=== PATIENT | male | born 1995 | race African-American/Black ===

== ENCOUNTER 2020-06-26 20:25 | Emergency (ER) | payer SELFPAY ==
[2020-06-27 01:55] LABS: SARS-CoV-2 PCR by NAA Not Detected (NotDetected)
== END 2020-06-26 21:22 | disposition home or self-care (01) ==
LOC: ERS 20:25
DX: Z20.822 Contact with and (suspected) exposure to COVID-19 (principal); R03.0 Elevated blood-pressure reading, without diagnosis of hypertension; Z79.891 Long term (current) use of opiate analgesic
CPT/HCPCS: 87635; 99283; U0003; U0005

== ENCOUNTER 2021-05-29 20:00 | Emergency (ER) | payer SELFPAY ==
[2021-05-29] MEDS ORDERED: Metoclopramide HCl 10 MG/2 ML VIAL ONE (21:50)
[2021-05-29] MEDS ORDERED: Ketorolac Tromethamine 30 MG/ML VIAL ONE (21:50)
[2021-05-29] MEDS ORDERED: Acetaminophen 500 MG TAB ONE (21:50)
[2021-05-29] MEDS ORDERED: diphenhydrAMINE 50 MG/ML VIAL ONE ×2 (21:50→21:54)
== END 2021-05-29 23:43 | disposition home or self-care (01) ==
LOC: ERS 20:00
DX: R51.9 Headache, unspecified (principal); J45.909 Unspecified asthma, uncomplicated
CPT/HCPCS: 96374; 96375; J1200; J1885; J2765

== ENCOUNTER 2021-06-05 16:52 | Emergency (ER) | payer SELFPAY ==
[2021-06-05] MEDS ORDERED: Ondansetron ODT 4 MG TAB ONE (17:15)
== END 2021-06-05 17:30 | disposition home or self-care (01) ==
LOC: ERS 16:52
DX: B34.9 Viral infection, unspecified (principal); R11.2 Nausea with vomiting, unspecified; J45.909 Unspecified asthma, uncomplicated
CPT/HCPCS: 99283; Q0162

== ENCOUNTER 2023-05-17 13:15 | Inpatient (IN) | payer SELFPAY ==
[2023-05-17 13:54] LABS: #Monocytes 0.8 thou/uL (0.11-0.59); #Neutrophils 7.6 thou/uL (1.40-6.50); %Basophils 0.1 % (0.0-1.0); %Lymphocytes 12.3 % (21.0-51.0); %Monocytes 8.6 % (0.0-10.0); %Neutrophils 78.7 % (42.0-75.0); Hematocrit 45.9 % (42.0-52.0); Mean Corpuscular Hemoglobin 33.1 pg (27.0-31.0); Mean Corpuscular Volume 89.3 fl (78.0-98.0); Mean Platelet Volume 9.9 fL (7.4-10.4); Platelet Count 312 10x3/uL (130-400); RBC Distribution Width 11.1 % (11.5-14.5); Red Blood Cell (RBC) Count 5.14 mill/uL (4.70-6.10); White Blood Cell (WBC) Count 9.6 10x3/uL (4.8-10.8)
[2023-05-17 14:12] LABS: Acetaminophen 55 mcg/mL (10.0-30.0); Alcohol Less than 10.0 mg/dL (Less than 10); Lipase 33 U/L (8-78); Salicylate Less than 8.0 mg/dL (15.0-30.0)
[2023-05-17 14:15] LABS: ALT (SGPT) 196 U/L (8-55); AST (SGOT) 212 U/L (5-34); Albumin 4.8 g/dL (3.5-5.0); Alkaline Phosphatase 63 U/L (40-110); Anion Gap 21 mmol/L (10-20); BUN (Urea Nitrogen) 12 mg/dL (8.9-20.6); Bilirubin, Total 2.4 mg/dL (0.2-1.2); Calc. Creatinine Clearance 0 mL/min (70-130); Calcium 9.7 mg/dL (7.8-10.44); Carbon Dioxide 16 mmol/L (22-29); Chloride 106 mmol/L (98-107); Estimated GFR 123; Globulin 2.2 g/dL (2.4-3.5); Glucose 86 mg/dL (70-105); Potassium 3.7 mmol/L (3.5-5.1); Sodium 139 mmol/L (136-145)
[2023-05-17] MEDS ORDERED: WATER IVPB SCH ×4 (15:00→20:30)
[2023-05-17] MEDS ORDERED: DEXTROSE 5% IVPB SCH ×4 (15:00→20:30)
[2023-05-17] MEDS ORDERED: ACETYLCYSTEINE IVPB SCH ×4 (15:00→20:30)
[2023-05-17] MEDS ORDERED: Morphine 4 MG/ML VIAL ONE (15:20)
[2023-05-17] MEDS ORDERED: DEXTROSE 5% IV SCH ×3 (16:00→21:00)
[2023-05-17] MEDS ORDERED: WATER IV SCH ×3 (16:00→21:00)
[2023-05-17] MEDS ORDERED: ACETYLCYSTEINE IV SCH ×3 (16:00→21:00)
[2023-05-17 17:03] LABS: Lactic Acid 1.9 mmol/L (0.5-2.2)
[2023-05-17 17:12] VITALS: BMI 21.1
[2023-05-17 18:54] LABS: Acetaminophen 34 mcg/mL (10.0-30.0)
[2023-05-17 18:58] LABS: INR-International Normal Ratio 1.6; PTT 27.2 sec (22.9-36.1); Prothrombin Time 18.9 sec (12.0-14.7)
[2023-05-17 21:51] LABS: INR-International Normal Ratio 1.5; PTT 28.2 sec (22.9-36.1); Prothrombin Time 17.9 sec (12.0-14.7)
[2023-05-17 22:00] LABS: ALT (SGPT) 1172 U/L (8-55); AST (SGOT) 969 U/L (5-34); Albumin 5.4 g/dL (3.5-5.0); Alkaline Phosphatase 69 U/L (40-110); Bilirubin, Direct 1.1 mg/dL (0.1-0.3); Bilirubin, Total 5.7 mg/dL (0.2-1.2); Protein, Total 8.4 g/dL (6.0-8.3)
[2023-05-18 07:46] LABS: #Monocytes 1.5 thou/uL (0.11-0.59); #Neutrophils 10.7 thou/uL (1.40-6.50); %Basophils 0.3 % (0.0-1.0); %Eosinophils 0.1 % (0.0-10.0); %Lymphocytes 11.9 % (21.0-51.0); %Monocytes 10.4 % (0.0-10.0); %Neutrophils 76.9 % (42.0-75.0); Hematocrit 44.6 % (42.0-52.0); Hemoglobin 16.2 g/dL (14.0-18.0); Mean Corpuscular HGB CONC 36.3 g/dL (32.0-36.0); Mean Corpuscular Hemoglobin 32.7 pg (27.0-31.0); Mean Corpuscular Volume 90.1 fl (78.0-98.0); Mean Platelet Volume 10.7 fL (7.4-10.4); Platelet Count 277 10x3/uL (130-400); RBC Distribution Width 11.2 % (11.5-14.5); Red Blood Cell (RBC) Count 4.95 mill/uL (4.70-6.10); White Blood Cell (WBC) Count 13.9 10x3/uL (4.8-10.8)
[2023-05-18] MEDS ORDERED: ACETYLCYSTEINE IVPB SCH (08:00)
[2023-05-18] MEDS ORDERED: WATER IVPB SCH (08:00)
[2023-05-18] MEDS ORDERED: DEXTROSE 5% IVPB SCH (08:00)
[2023-05-18 08:01] LABS: Acetaminophen Less than 10 mcg/mL (10.0-30.0); Anion Gap 14 mmol/L (10-20); BUN (Urea Nitrogen) 9 mg/dL (8.9-20.6); Calc. Creatinine Clearance 133 mL/min (70-130); Calcium 9.1 mg/dL (7.8-10.44); Carbon Dioxide 23 mmol/L (22-29); Chloride 100 mmol/L (98-107); Estimated GFR 126; Glucose 85 mg/dL (70-105); Potassium 3.2 mmol/L (3.5-5.1); Sodium 134 mmol/L (136-145)
[2023-05-18] MEDS: Enoxaparin 40 MG (0.4 mL) SYRINGE SC SCH (09:11)
[2023-05-18 12:46] LABS: INR-International Normal Ratio 1.8; Prothrombin Time 20.8 sec (12.0-14.7)
[2023-05-18 12:54] LABS: ALT (SGPT) 1010 U/L (8-55); AST (SGOT) 592 U/L (5-34); Acetaminophen Less than 10 mcg/mL (10.0-30.0); Albumin 4.1 g/dL (3.5-5.0); Alkaline Phosphatase 65 U/L (40-110); Bilirubin, Direct 1.5 mg/dL (0.1-0.3); Bilirubin, Total 5.5 mg/dL (0.2-1.2); Protein, Total 6.2 g/dL (6.0-8.3)
[2023-05-18] MEDS: WATER IV SCH (14:38)
[2023-05-18] MEDS: ACETYLCYSTEINE IV SCH (14:38)
[2023-05-18] MEDS: DEXTROSE 5% IV SCH (14:38)
[2023-05-18 21:24] LABS: INR-International Normal Ratio 1.7; PTT 32.7 sec (22.9-36.1); Prothrombin Time 19.7 sec (12.0-14.7)
[2023-05-18 21:26] LABS: ALT (SGPT) 1157 U/L (8-55); AST (SGOT) 631 U/L (5-34); Albumin 4.2 g/dL (3.5-5.0); Alkaline Phosphatase 67 U/L (40-110); Bilirubin, Direct 1.3 mg/dL (0.1-0.3); Bilirubin, Total 5.3 mg/dL (0.2-1.2); Protein, Total 6.3 g/dL (6.0-8.3)
[2023-05-19] MEDS: ACETYLCYSTEINE IV SCH (06:59)
[2023-05-19] MEDS: DEXTROSE 5% IV SCH (06:59)
[2023-05-19] MEDS: WATER IV SCH (06:59)
[2023-05-19 07:05] LABS: #Eosinphils 0.1 thou/uL (0.0-0.7); #Monocytes 1.1 thou/uL (0.11-0.59); #Neutrophils 6.2 thou/uL (1.40-6.50); %Basophils 0.2 % (0.0-1.0); %Eosinophils 0.6 % (0.0-10.0); %Monocytes 12.5 % (0.0-10.0); %Neutrophils 70.4 % (42.0-75.0); Hematocrit 42.8 % (42.0-52.0); Hemoglobin 15.7 g/dL (14.0-18.0); Mean Corpuscular HGB CONC 36.7 g/dL (32.0-36.0); Mean Corpuscular Hemoglobin 32.8 pg (27.0-31.0); Mean Corpuscular Volume 89.4 fl (78.0-98.0); Mean Platelet Volume 10.8 fL (7.4-10.4); Platelet Count 236 10x3/uL (130-400); RBC Distribution Width 11.1 % (11.5-14.5); Red Blood Cell (RBC) Count 4.79 mill/uL (4.70-6.10); White Blood Cell (WBC) Count 8.8 10x3/uL (4.8-10.8)
[2023-05-19 07:34] LABS: ALT (SGPT) 1261 U/L (8-55); AST (SGOT) 631 U/L (5-34); Acetaminophen Less than 10 mcg/mL (10.0-30.0); Albumin 4.1 g/dL (3.5-5.0); Alkaline Phosphatase 65 U/L (40-110); Anion Gap 13 mmol/L (10-20); BUN (Urea Nitrogen) 7 mg/dL (8.9-20.6); Bilirubin, Total 3.8 mg/dL (0.2-1.2); Calc. Creatinine Clearance 128 mL/min (70-130); Calcium 8.6 mg/dL (7.8-10.44); Carbon Dioxide 27 mmol/L (22-29); Chloride 101 mmol/L (98-107); Estimated GFR 125; Glucose 77 mg/dL (70-105); Magnesium 2.9 mg/dL (1.6-2.6); Potassium 3.5 mmol/L (3.5-5.1); Protein, Total 6.1 g/dL (6.0-8.3); Sodium 137 mmol/L (136-145)
[2023-05-19 09:16] LABS: ALT (SGPT) 1265 U/L (8-55); AST (SGOT) 623 U/L (5-34); Albumin 4.1 g/dL (3.5-5.0); Alkaline Phosphatase 64 U/L (40-110); Bilirubin, Direct 1.2 mg/dL (0.1-0.3); Bilirubin, Total 3.9 mg/dL (0.2-1.2); Protein, Total 6.1 g/dL (6.0-8.3)
[2023-05-19] MEDS: Enoxaparin 40 MG (0.4 mL) SYRINGE SC SCH (10:33)
[2023-05-19 11:46] LABS: INR-International Normal Ratio 1.4; PTT 33.9 sec (22.9-36.1); Prothrombin Time 16.9 sec (12.0-14.7)
[2023-05-19 21:36] LABS: Acetaminophen Less than 10 mcg/mL (10.0-30.0)
[2023-05-19 21:38] LABS: ALT (SGPT) 1651 U/L (8-55); AST (SGOT) 947 U/L (5-34); Alkaline Phosphatase 60 U/L (40-110); Bilirubin, Direct 1.6 mg/dL (0.1-0.3); Bilirubin, Total 3.8 mg/dL (0.2-1.2); Protein, Total 5.9 g/dL (6.0-8.3)
[2023-05-19 21:53] LABS: INR-International Normal Ratio 1.2; Prothrombin Time 15.4 sec (12.0-14.7)
[2023-05-19 21:54] LABS: PTT 31.3 sec (22.9-36.1)
[2023-05-20] MEDS: WATER IV SCH ×2 (00:18→16:50)
[2023-05-20] MEDS: DEXTROSE 5% IV SCH ×2 (00:18→16:50)
[2023-05-20] MEDS: ACETYLCYSTEINE IV SCH ×2 (00:18→16:50)
[2023-05-20 04:23] LABS: #Eosinphils 0.1 thou/uL (0.0-0.7); #Monocytes 1.3 thou/uL (0.11-0.59); #Neutrophils 4.9 thou/uL (1.40-6.50); %Basophils 0.2 % (0.0-1.0); %Lymphocytes 22.7 % (21.0-51.0); %Monocytes 15.8 % (0.0-10.0); %Neutrophils 60.2 % (42.0-75.0); Hematocrit 41.4 % (42.0-52.0); Hemoglobin 15.2 g/dL (14.0-18.0); Mean Corpuscular HGB CONC 36.7 g/dL (32.0-36.0); Mean Corpuscular Hemoglobin 32.4 pg (27.0-31.0); Mean Corpuscular Volume 88.3 fl (78.0-98.0); Mean Platelet Volume 10.7 fL (7.4-10.4); Platelet Count 224 10x3/uL (130-400); RBC Distribution Width 11.1 % (11.5-14.5); Red Blood Cell (RBC) Count 4.69 mill/uL (4.70-6.10); White Blood Cell (WBC) Count 8.2 10x3/uL (4.8-10.8)
[2023-05-20 04:52] LABS: Anion Gap 16 mmol/L (10-20); BUN (Urea Nitrogen) 8 mg/dL (8.9-20.6); Calc. Creatinine Clearance 130 mL/min (70-130); Calcium 8.8 mg/dL (7.8-10.44); Carbon Dioxide 25 mmol/L (22-29); Chloride 99 mmol/L (98-107); Estimated GFR 125; Glucose 86 mg/dL (70-105); Potassium 3.1 mmol/L (3.5-5.1); Sodium 137 mmol/L (136-145)
[2023-05-20 05:05] LABS: HBCM Index 0.12 S/CO (0-0.79); HBSAg Index 0.17 S/CO (0-0.99); Hep A IgM AB Non-Reactive S/CO (NonReactive); Hep A IgM S/CO 0.21 S/CO (0-0.79); Hep B Surf Ag Non-Reactive S/CO (NonReactive); Hep C IgG Ab Non-Reactive S/CO (NonReactive); Hep C Index 0.13 S/CO (0-0.79); Hepatitis B Core IgM Abs Non-Reactive S/CO (NonReactive)
[2023-05-20] MEDS: Enoxaparin 40 MG (0.4 mL) SYRINGE SC SCH (07:55)
[2023-05-20 10:29] LABS: INR-International Normal Ratio 1.2; Prothrombin Time 15.4 sec (12.0-14.7)
[2023-05-20 10:30] LABS: PTT 32.9 sec (22.9-36.1)
[2023-05-20 10:37] LABS: ALT (SGPT) 1786 U/L (8-55); AST (SGOT) 782 U/L (5-34); Acetaminophen Less than 10 mcg/mL (10.0-30.0); Albumin 4.1 g/dL (3.5-5.0); Alkaline Phosphatase 68 U/L (40-110); Bilirubin, Total 4.5 mg/dL (0.2-1.2); Protein, Total 6.3 g/dL (6.0-8.3)
[2023-05-20 20:58] LABS: INR-International Normal Ratio 1.2; Prothrombin Time 15.5 sec (12.0-14.7)
[2023-05-20 20:59] LABS: PTT 29.4 sec (22.9-36.1)
[2023-05-20 21:20] LABS: ALT (SGPT) 1536 U/L (8-55); AST (SGOT) 550 U/L (5-34); Albumin 4.1 g/dL (3.5-5.0); Alkaline Phosphatase 64 U/L (40-110); Bilirubin, Direct 2.2 mg/dL (0.1-0.3); Bilirubin, Total 4.3 mg/dL (0.2-1.2); Protein, Total 6.2 g/dL (6.0-8.3)
[2023-05-21 04:36] LABS: #Eosinphils 0.1 thou/uL (0.0-0.7); #Monocytes 0.9 thou/uL (0.11-0.59); #Neutrophils 3.8 thou/uL (1.40-6.50); %Basophils 0.3 % (0.0-1.0); %Eosinophils 1.7 % (0.0-10.0); %Lymphocytes 25.3 % (21.0-51.0); %Monocytes 14.4 % (0.0-10.0); Hematocrit 40.2 % (42.0-52.0); Hemoglobin 14.7 g/dL (14.0-18.0); Mean Corpuscular HGB CONC 36.6 g/dL (32.0-36.0); Mean Corpuscular Hemoglobin 32.3 pg (27.0-31.0); Mean Corpuscular Volume 88.4 fl (78.0-98.0); Mean Platelet Volume 10.7 fL (7.4-10.4); Platelet Count 212 10x3/uL (130-400); RBC Distribution Width 10.8 % (11.5-14.5); Red Blood Cell (RBC) Count 4.55 mill/uL (4.70-6.10); White Blood Cell (WBC) Count 6.5 10x3/uL (4.8-10.8)
[2023-05-21 05:14] LABS: Anion Gap 12 mmol/L (10-20); BUN (Urea Nitrogen) 7 mg/dL (8.9-20.6); Calc. Creatinine Clearance 138 mL/min (70-130); Calcium 8.9 mg/dL (7.8-10.44); Carbon Dioxide 28 mmol/L (22-29); Chloride 100 mmol/L (98-107); Estimated GFR 127; Glucose 97 mg/dL (70-105); Potassium 3.2 mmol/L (3.5-5.1); Sodium 137 mmol/L (136-145)
[2023-05-21 08:06] LABS: ALT (SGPT) 1327 U/L (8-55); AST (SGOT) 410 U/L (5-34); Acetaminophen Less than 10 mcg/mL (10.0-30.0); Albumin 4.1 g/dL (3.5-5.0); Alkaline Phosphatase 62 U/L (40-110); Bilirubin, Direct 2.1 mg/dL (0.1-0.3); Protein, Total 6.1 g/dL (6.0-8.3)
[2023-05-21 08:07] LABS: INR-International Normal Ratio 1.1; Prothrombin Time 14.4 sec (12.0-14.7)
[2023-05-21 08:08] LABS: PTT 23.7 sec (22.9-36.1)
[2023-05-21] MEDS: Enoxaparin 40 MG (0.4 mL) SYRINGE SC SCH (08:16)
[2023-05-21 09:59] LABS: ALT (SGPT) 1297 U/L (8-55); AST (SGOT) 401 U/L (5-34); Alkaline Phosphatase 60 U/L (40-110); Bilirubin, Direct 2.2 mg/dL (0.1-0.3); Bilirubin, Total 4.1 mg/dL (0.2-1.2); Protein, Total 6.1 g/dL (6.0-8.3)
[2023-05-21 21:57] LABS: INR-International Normal Ratio 1.1; Prothrombin Time 14.5 sec (12.0-14.7)
[2023-05-21 22:08] LABS: ALT (SGPT) 1241 U/L (8-55); AST (SGOT) 405 U/L (5-34); Albumin 4.2 g/dL (3.5-5.0); Alkaline Phosphatase 65 U/L (40-110); Bilirubin, Direct 2.4 mg/dL (0.1-0.3); Bilirubin, Total 4.5 mg/dL (0.2-1.2); Protein, Total 6.3 g/dL (6.0-8.3)
[2023-05-21] MEDS: WATER IV SCH (22:36)
[2023-05-21] MEDS: ACETYLCYSTEINE IV SCH (22:36)
[2023-05-21] MEDS: DEXTROSE 5% IV SCH (22:36)
[2023-05-22 08:46] LABS: #Eosinphils 0.2 thou/uL (0.0-0.7); #Monocytes 1.2 thou/uL (0.11-0.59); #Neutrophils 5.3 thou/uL (1.40-6.50); %Basophils 0.3 % (0.0-1.0); %Eosinophils 2.4 % (0.0-10.0); %Lymphocytes 11.9 % (21.0-51.0); %Monocytes 15.3 % (0.0-10.0); %Neutrophils 69.8 % (42.0-75.0); Hematocrit 37.6 % (42.0-52.0); Hemoglobin 13.7 g/dL (14.0-18.0); Mean Corpuscular HGB CONC 36.4 g/dL (32.0-36.0); Mean Corpuscular Hemoglobin 32.6 pg (27.0-31.0); Mean Corpuscular Volume 89.5 fl (78.0-98.0); Mean Platelet Volume 10.8 fL (7.4-10.4); Platelet Count 195 10x3/uL (130-400); RBC Distribution Width 10.9 % (11.5-14.5); White Blood Cell (WBC) Count 7.6 10x3/uL (4.8-10.8)
[2023-05-22] MEDS: Enoxaparin 40 MG (0.4 mL) SYRINGE SC SCH (08:51)
[2023-05-22 09:13] LABS: Anion Gap 14 mmol/L (10-20); BUN (Urea Nitrogen) 11 mg/dL (8.9-20.6); Calc. Creatinine Clearance 128 mL/min (70-130); Carbon Dioxide 27 mmol/L (22-29); Chloride 101 mmol/L (98-107); Estimated GFR 125; Glucose 99 mg/dL (70-105); Potassium 3.5 mmol/L (3.5-5.1); Sodium 138 mmol/L (136-145)
[2023-05-22 15:13] LABS: ALT (SGPT) 992 U/L (8-55); AST (SGOT) 256 U/L (5-34); Albumin 4.2 g/dL (3.5-5.0); Alkaline Phosphatase 73 U/L (40-110); Bilirubin, Direct 1.8 mg/dL (0.1-0.3); Bilirubin, Total 3.3 mg/dL (0.2-1.2); Protein, Total 6.4 g/dL (6.0-8.3)
[2023-05-22 15:22] LABS: INR-International Normal Ratio 1.1; PTT 32.2 sec (22.9-36.1); Prothrombin Time 13.8 sec (12.0-14.7)
[2023-05-23 04:52] LABS: #Eosinphils 0.2 thou/uL (0.0-0.7); #Monocytes 1.4 thou/uL (0.11-0.59); #Neutrophils 4.4 thou/uL (1.40-6.50); %Basophils 0.3 % (0.0-1.0); %Eosinophils 2.8 % (0.0-10.0); %Lymphocytes 15.4 % (21.0-51.0); %Monocytes 19.7 % (0.0-10.0); %Neutrophils 61.5 % (42.0-75.0); Hematocrit 37.8 % (42.0-52.0); Hemoglobin 13.8 g/dL (14.0-18.0); Mean Corpuscular HGB CONC 36.5 g/dL (32.0-36.0); Mean Corpuscular Hemoglobin 32.5 pg (27.0-31.0); Mean Corpuscular Volume 88.9 fl (78.0-98.0); Mean Platelet Volume 10.6 fL (7.4-10.4); Platelet Count 184 10x3/uL (130-400); Red Blood Cell (RBC) Count 4.25 mill/uL (4.70-6.10); White Blood Cell (WBC) Count 7.2 10x3/uL (4.8-10.8)
[2023-05-23 05:26] LABS: ALT (SGPT) 763 U/L (8-55); AST (SGOT) 152 U/L (5-34); Albumin 3.8 g/dL (3.5-5.0); Alkaline Phosphatase 83 U/L (40-110); Anion Gap 12 mmol/L (10-20); BUN (Urea Nitrogen) 10 mg/dL (8.9-20.6); Bilirubin, Total 1.8 mg/dL (0.2-1.2); Calc. Creatinine Clearance 128 mL/min (70-130); Calcium 8.9 mg/dL (7.8-10.44); Carbon Dioxide 26 mmol/L (22-29); Chloride 105 mmol/L (98-107); Estimated GFR 125; Globulin 2.2 g/dL (2.4-3.5); Glucose 99 mg/dL (70-105); Potassium 3.4 mmol/L (3.5-5.1); Sodium 140 mmol/L (136-145)
[2023-05-23] MEDS: DEXTROSE 5% IV SCH (07:40)
[2023-05-23] MEDS: ACETYLCYSTEINE IV SCH (07:40)
[2023-05-23] MEDS: WATER IV SCH (07:40)
[2023-05-23] MEDS: Enoxaparin 40 MG (0.4 mL) SYRINGE SC SCH (09:05)
[2023-05-23 15:36] VITALS: BP 154/64; TEMP 97.3
== END 2023-05-23 15:35 | disposition home or self-care (01) | DRG 918 ==
LOC: ERS 13:15 → T4-B 16:15
PROVIDERS: ADMIT Hospitalist; ATTEND Internal Medicine
DX: T39.1X2A Poisoning by 4-Aminophenol derivatives, intentional self-harm, initial encounter (principal); F41.9 Anxiety disorder, unspecified; F31.9 Bipolar disorder, unspecified; F90.9 Attention-deficit hyperactivity disorder, unspecified type; F17.290 Nicotine dependence, other tobacco product, uncomplicated; Z79.899 Other long term (current) drug therapy
CPT/HCPCS: 36415; 76705; 80048; 80053; 80074; 80076; 80143; 80307; 83605; 83690; 83735; 85025; 85610; 85730; 96374; 96375; J0132; J1650; J2270; J7070